=== PATIENT | female | born 1970 | race African-American/Black ===

== ENCOUNTER 2016-06-30 15:45 | Emergency (ER) | payer SELFPAY ==
[~2016-06-30] VITALS: Ht 175.3 cm; Wt 105.0 kg
[~2016-06-30 15:45] MED LIST: CYCL-36 PO; HYDR12.56 PO; LISI-363 PO; NAPR220T95 PO; NORV10TA PO
[2016-06-30 15:47] VITALS: BP 196/107; PULSE 70; RESP 20; TEMP 97.8; O2SAT 96
--- NOTE | 2016-06-30 17:56 | PD ---
HPI Chief Complaint: Abdominal Pain Time Seen by Provider: 17:53 Travel History International Travel<30 days: No Contact w/Intl Traveler<30days: No Traveled to known affect area: No History of Present Illness HPI Patient is a 46-year-old female presented to emergency for evaluation of abdominal pain and cramping. Patient also reports nausea and vomiting. Patient 's symptoms started yesterday. She denies any fever, chills, headache, chest pain, shortness of breath. Patient has not vomited since 8 AM this morning. Patient reports a small watery bowel movement yesterday. PFSH Past Medical History Blood Disorders: No Depression: Yes Heart Rhythm Problems: No Cancer: No Cardiovascular Problems: Yes (HTN) High Cholesterol: No Chest Pain: Yes Congestive Heart Failure: No Diabetes: No Diminished Hearing: No Endocrine: No Gastrointestinal Disorders: Yes (ONGOING PROBLEMS WITH ELIMINATION & NAUSEA OVER THE PAST FEW YEARS) GERD: Yes Genitourinary: No Hypertension: Yes Immune Disorder: No Reproductive: Yes (TOLD SHE MAY HAVE UTERINE FIBROIDS APPROX. 3 MONTHS AGO BY MD) Respiratory: No Immunizations Current: No ?: Not LMP: 06/26/16 : 4 Para: 4 Tubal Ligation: Yes (1993) Past Surgical History Pacemaker: No Other Surgery: Yes (TUBAL LIGATION IN 1993) Social History Alcohol Use: Yes (OCCAS) Tobacco Use: Yes (OCCAS) Substance Use: No Allergies-Medications (Allergen,Severity, Reaction): Coded Allergies: No Known Allergies (Verified , 06/30/16) Reported Meds & Prescriptions Reported Meds & Active Scripts Active Hctz (Hydrochlorothiazide) 12.5 Mg Cap 12.5 Mg PO DAILY Norvasc (Amlodipine Besylate) 10 Mg Tab 10 Mg PO DAILY Lisinopril 20 mg (Lisinopril) 20 Mg Tab 20 Mg PO DAILY Reported Aleve (Naproxen Sodium) 220 Mg Tab 220 Mg PO DAILY PRN Flexeril (Cyclobenzaprine HCl) 10 Mg Tab 10 Mg PO TID Review of Systems Except as stated in HPI: all other systems reviewed are Neg Gastrointestinal: Positive: Nausea, Vomiting, Abdominal Pain, Changes in Bowel Habits Physical Exam Narrative GENERAL: Well-developed, well-nourished, female. Appears uncomfortable, in no acute distress. SKIN: Warm and dry. HEAD: Atraumatic. Normocephalic. EYES: Pupils equal and round. No scleral icterus. No injection or drainage. ENT: No nasal bleeding or discharge. Mucous membranes pink and moist. NECK: Trachea midline. No JVD. CARDIOVASCULAR: Regular rate and rhythm. No murmur appreciated. RESPIRATORY: No accessory muscle use. Clear to auscultation. Breath sounds equal bilaterally. GASTROINTESTINAL: Abdomen soft, tender to palpation in epigastric region, nondistended. Hepatic and splenic margins not palpable. Positive bowel sounds, no rebound, guarding. MUSCULOSKELETAL: No obvious deformities. No clubbing. No cyanosis. No edema. NEUROLOGICAL: Awake and alert. No obvious cranial nerve deficits. Motor grossly within normal limits. Normal speech. PSYCHIATRIC: Appropriate mood and affect; insight and judgment normal. Data Data Last Documented VS Vital Signs Date Time Temp Pulse Resp B/P Pulse Ox O2 Delivery O2 Flow Rate FiO2 06/30/16 15:47 97.8 70 20 196/107 96 Room Air Orders Complete Blood Count With Diff (06/30/16 17:52) Comprehensive Metabolic Panel (06/30/16 17:52) Lipase (06/30/16 17:52) Urinalysis - C+S If Indicated (06/30/16 17:52) Abdomen, Kub Only (06/30/16 17:52) Dicyclomine (Bentyl) (06/30/16 18:00) Ct Abd/Pel W Iv Contrast(Rout) (06/30/16 20:07) Morphine Inj (Morphine Inj) (06/30/16 20:15) Ondansetron Inj (Zofran Inj) (06/30/16 20:15) Sodium Chlor 0.9% 1000 Ml Inj (Ns 1000 M (06/30/16 20:08) Labs Laboratory Tests Test 06/30/16 18:04 White Blood Count 9.0 TH/MM3 Red Blood Count 4.13 MIL/MM3 Hemoglobin 10.5 GM/DL Hematocrit 33.4 % Mean Corpuscular Volume 81.1 FL Mean Corpuscular Hemoglobin 25.5 PG Mean Corpuscular Hemoglobin 31.4 % Concent Red Cell Distribution Width 16.3 % Platelet Count 241 TH/MM3 Mean Platelet Volume 9.0 FL Neutrophils (%) (Auto) 64.8 % Lymphocytes (%) (Auto) 25.1 % Monocytes (%) (Auto) 8.6 % Eosinophils (%) (Auto) 1.2 % Basophils (%) (Auto) 0.3 % Neutrophils # (Auto) 5.9 TH/MM3 Lymphocytes # (Auto) 2.3 TH/MM3 Monocytes # (Auto) 0.8 TH/MM3 Eosinophils # (Auto) 0.1 TH/MM3 Basophils # (Auto) 0.0 TH/MM3 CBC Comment DIFF FINAL Differential Comment Urine Color YELLOW Urine Turbidity HAZY Urine pH 5.5 Urine Specific [place] 1.033 Urine Protein 30 mg/dL Urine Glucose (UA) NEG mg/dL Urine Ketones TRACE mg/dL Urine Occult Blood MOD Urine Nitrite NEG Urine Bilirubin NEG Urine Urobilinogen LESS THAN 2.0 MG/DL Urine Leukocyte Esterase MOD Urine RBC 10 /hpf Urine WBC 6 /hpf Urine Squamous Epithelial 5 /hpf Cells Urine Mucus MANY /lpf Microscopic Urinalysis Comment CULT NOT INDICATED Sodium Level 140 MEQ/L Potassium Level 3.3 MEQ/L Chloride Level 104 MEQ/L Carbon Dioxide Level 26.9 MEQ/L Anion Gap 9 MEQ/L Blood Urea Nitrogen 22 MG/DL Creatinine 1.48 MG/DL Estimat Glomerular Filtration 46 ML/MIN Rate Random Glucose 81 MG/DL Calcium Level 8.9 MG/DL Total Bilirubin 0.6 MG/DL Aspartate Amino Transf 11 U/L (AST/SGOT) Alanine Aminotransferase 17 U/L (ALT/SGPT) Alkaline Phosphatase 49 U/L Total Protein 8.0 GM/DL Albumin 4.0 GM/DL Lipase 255 U/L MDM Medical Decision Making Medical Screen Exam Complete: Yes Emergency Medical Condition: Yes Interpretation(s) Vital Signs Date Time Temp Pulse Resp B/P Pulse Ox O2 Delivery O2 Flow Rate FiO2 06/30/16 15:47 97.8 70 20 196/107 96 Room Air Differential Diagnosis Gastritis versus gastroenteritis versus food poisoning versus obstruction versus cholecystitis versus pancreatitis versus other Narrative Course Patient is a 42-year-old female presenting to the chart for evaluation of abdominal pain and cramping. Labs imaging ordered and pending, Bentyl 1 dose ordered. Workup initiated in triage, care of patient will be transferred to a provider when a medical bed is available. Carolina Aponte Jun 30, 2016 17:56
[2016-06-30] MEDS ORDERED: DICYCLOMINE HCL 10 MG CAP PO ONE (18:00)
[2016-06-30 18:39] LABS: AUTOMATED NEUTROPHIL # 5.9 TH/MM3 (1.8-7.7); BASOPHIL % 0.3 % (0.0-2.0); BLOOD, URINE MOD (NEG); COMMENT (UR) CULT NOT INDICATED; CULTURE IF INDICATED CULT NOT INDICATED; EOSINOPHIL # 0.1 TH/MM3 (0-0.4); EOSINOPHIL % 1.2 % (0.0-4.0); GLUCOSE,URINE NEG (NEG); HEMATOCRIT 33.4 % (35.0-46.0); HEMO FLAGS DIFF FINAL; KETONE, URINE TRACE mg/dL (NEG); LYMPH % 25.1 % (9.0-44.0); LYMPHOCYTE # 2.3 TH/MM3 (1.0-4.8); MEAN CELL VOLUME 81.1 FL (80.0-100.0); MEAN CORPUSCULAR HEMOGLOBIN 25.5 PG (27.0-34.0); MEAN CORPUSCULAR HGB CONC 31.4 % (32.0-36.0); MONO % 8.6 % (0.0-8.0); MUCUS URINE MANY /lpf (OCC); NEUT % 64.8 % (16.0-70.0); NITRITE,URINE NEG (NEG); PH, URINE 5.5 (5.0-8.5); PLATELET COUNT 241 TH/MM3 (150-450); RED BLOOD COUNT 4.13 MIL/MM3 (4.00-5.30); RED CELL DISTRIBUTION WIDTH 16.3 % (11.6-17.2); SQUAMOUS EPITHELIAL CELL URINE 5 /hpf (0-5); URINE COLOR YELLOW (YELLW/STRAW)
--- NOTE | 2016-06-30 18:42 | RADRPT ---
EXAM DATE/TIME: 06/30/2016 18:15 [facility] COMPARISON: No previous studies available for comparison. INDICATIONS : Patient complains of abdominal pain in the lower right quadrant. Patient also has been vomiting for 2 days. MEDICAL HISTORY : None. SURGICAL HISTORY : Tubal ligation. ENCOUNTER: Initial ACUITY: 2 days PAIN SCORE: 10/10 LOCATION: Abdomen FINDINGS: Supine view of the abdomen was performed. Mildly prominent small bowel loops left midabdomen. No ab normal masses, calcifications, or organomegaly is seen. The osseous structures are unremarkable. Phl eboliths in the pelvis. Probable phlebolith adjacent to the left iliac crest. CONCLUSION: Mildly prominent small bowel loops in left midabdomen. Douglas Ruffin MD on June 30, 2016 at 18:37 Board Certified Radiologist. This report was verified electronically.
[2016-06-30 18:55] LABS: ANION GAP 9 MEQ/L (5-15); AST (GOT) 11 U/L (15-37); BICARBONATE 26.9 MEQ/L (21.0-32.0); BLOOD UREA NITROGEN 22 MG/DL (7-18); CHLORIDE 104 MEQ/L (98-107); GLOMERULAR FILTRATION RATE 46 ML/MIN (>89); POTASSIUM 3.3 MEQ/L (3.5-5.1); SODIUM (NA) 140 MEQ/L (136-145)
[2016-06-30 18:58] LABS: ALKALINE PHOSPHATASE 49 U/L (45-117); ALT (GPT) 17 U/L (10-53); TOTAL BILIRUBIN ADULT 0.6 MG/DL (0.2-1.0)
[2016-06-30] MEDS ORDERED: SODIUM CHLOR 0.9% 1000 ML INJ 1,000 ML IV SCH (20:08)
--- NOTE | 2016-06-30 20:11 | PD ---
HPI Chief Complaint: Abdominal Pain Time Seen by Provider: 20:00 Travel History International Travel<30 days: No Contact w/Intl Traveler<30days: No Traveled to known affect area: No History of Present Illness HPI 46-year-old female presents for evaluation of abdominal pain, nausea and vomiting. Symptoms started yesterday at 5 PM after eating some chicken from [employer]. She describes it as a crampy pain which is constant in the periumbilical region. No obvious aggravating or relieving factors. Associated nausea, vomiting, now dry heaving. Denies any diarrhea. Denies dysuria, flank pain, hematemesis, respiratory symptoms, dietary indiscretion, rash. History of tubal ligation, otherwise no history of abdominal surgery. No other complaints. PFSH Past Medical History Blood Disorders: No Depression: Yes Heart Rhythm Problems: No Cancer: No Cardiovascular Problems: Yes (HTN) High Cholesterol: No Chest Pain: Yes Congestive Heart Failure: No Diabetes: No Diminished Hearing: No Endocrine: No Gastrointestinal Disorders: Yes (ONGOING PROBLEMS WITH ELIMINATION & NAUSEA OVER THE PAST FEW YEARS) GERD: Yes Genitourinary: No Hypertension: Yes Immune Disorder: No Reproductive: Yes (TOLD SHE MAY HAVE UTERINE FIBROIDS APPROX. 3 MONTHS AGO BY MD) Respiratory: No Immunizations Current: No ?: Not LMP: 06/26/16 : 4 Para: 4 Tubal Ligation: Yes (1993) Past Surgical History Pacemaker: No Other Surgery: Yes (TUBAL LIGATION IN 1993) Social History Alcohol Use: No Tobacco Use: No Substance Use: No Allergies-Medications (Allergen,Severity, Reaction): Coded Allergies: No Known Allergies (Verified , 06/30/16) Reported Meds & Prescriptions Reported Meds & Active Scripts Active Hydrochlorothiazide 12.5 Mg Tab 12.5 Mg PO DAILY Norvasc (Amlodipine Besylate) 10 Mg Tab 10 Mg PO DAILY Zofran (Ondansetron HCl) 4 Mg Tab 4 Mg PO Q6HR PRN Hydrochlorothiazide (Miscellaneous Medication) 12.5 Mg Cap 12.5 Mg PO DAILY Norvasc (Amlodipine Besylate) 10 Mg Tab 10 Mg PO DAILY Lisinopril 20 mg (Lisinopril) 20 Mg Tab 20 Mg PO DAILY Reported Aleve (Naproxen Sodium) 220 Mg Tab 220 Mg PO DAILY PRN Flexeril (Cyclobenzaprine HCl) 10 Mg Tab 10 Mg PO TID Review of Systems Except as stated in HPI: all other systems reviewed are Neg Physical Exam Narrative GENERAL: Well-developed well-nourished female in no acute distress SKIN: Warm and dry. HEAD: Atraumatic. Normocephalic. EYES: Pupils equal and round. No scleral icterus. No injection or drainage. ENT: No nasal bleeding or discharge. Mucous membranes pink and moist. NECK: Trachea midline. No JVD. CARDIOVASCULAR: Regular rate and rhythm. No murmur appreciated. RESPIRATORY: No accessory muscle use. Clear to auscultation. Breath sounds equal bilaterally. GASTROINTESTINAL: Abdomen soft, periumbilical tenderness to palpation without guarding. No CVA tenderness. MUSCULOSKELETAL: No obvious deformities. No clubbing. No cyanosis. No edema. NEUROLOGICAL: Awake and alert. No obvious cranial nerve deficits. Motor grossly within normal limits. Normal speech. PSYCHIATRIC: Appropriate mood and affect; insight and judgment normal. Data Data Last Documented VS Vital Signs Date Time Temp Pulse Resp B/P Pulse Ox O2 Delivery O2 Flow Rate FiO2 06/30/16 20:57 66 18 184/104 Room Air 06/30/16 15:47 97.8 96 Orders Complete Blood Count With Diff (06/30/16 17:52) Comprehensive Metabolic Panel (06/30/16 17:52) Lipase (06/30/16 17:52) Urinalysis - C+S If Indicated (06/30/16 17:52) Abdomen, Kub Only (06/30/16 17:52) Dicyclomine (Bentyl) (06/30/16 18:00) Ct Abd/Pel W Iv Contrast(Rout) (06/30/16 20:07) Morphine Inj (Morphine Inj) (06/30/16 20:15) Ondansetron Inj (Zofran Inj) (06/30/16 20:15) Sodium Chlor 0.9% 1000 Ml Inj (Ns 1000 M (06/30/16 20:08) Iohexol 350 Inj (Omnipaque 350 Inj) (06/30/16 21:44) Ondansetron Inj (Zofran Inj) (06/30/16 22:00) Mandatory Outpatient Referral (06/30/16 22:11) Labs Laboratory Tests Test 06/30/16 18:04 White Blood Count 9.0 TH/MM3 Red Blood Count 4.13 MIL/MM3 Hemoglobin 10.5 GM/DL Hematocrit 33.4 % Mean Corpuscular Volume 81.1 FL Mean Corpuscular Hemoglobin 25.5 PG Mean Corpuscular Hemoglobin 31.4 % Concent Red Cell Distribution Width 16.3 % Platelet Count 241 TH/MM3 Mean Platelet Volume 9.0 FL Neutrophils (%) (Auto) 64.8 % Lymphocytes (%) (Auto) 25.1 % Monocytes (%) (Auto) 8.6 % Eosinophils (%) (Auto) 1.2 % Basophils (%) (Auto) 0.3 % Neutrophils # (Auto) 5.9 TH/MM3 Lymphocytes # (Auto) 2.3 TH/MM3 Monocytes # (Auto) 0.8 TH/MM3 Eosinophils # (Auto) 0.1 TH/MM3 Basophils # (Auto) 0.0 TH/MM3 CBC Comment DIFF FINAL Differential Comment Urine Color YELLOW Urine Turbidity HAZY Urine pH 5.5 Urine Specific [place] 1.033 Urine Protein 30 mg/dL Urine Glucose (UA) NEG mg/dL Urine Ketones TRACE mg/dL Urine Occult Blood MOD Urine Nitrite NEG Urine Bilirubin NEG Urine Urobilinogen LESS THAN 2.0 MG/DL Urine Leukocyte Esterase MOD Urine RBC 10 /hpf Urine WBC 6 /hpf Urine Squamous Epithelial 5 /hpf Cells Urine Mucus MANY /lpf Microscopic Urinalysis Comment CULT NOT INDICATED Sodium Level 140 MEQ/L Potassium Level 3.3 MEQ/L Chloride Level 104 MEQ/L Carbon Dioxide Level 26.9 MEQ/L Anion Gap 9 MEQ/L Blood Urea Nitrogen 22 MG/DL Creatinine 1.48 MG/DL Estimat Glomerular Filtration 46 ML/MIN Rate Random Glucose 81 MG/DL Calcium Level 8.9 MG/DL Total Bilirubin 0.6 MG/DL Aspartate Amino Transf 11 U/L (AST/SGOT) Alanine Aminotransferase 17 U/L (ALT/SGPT) Alkaline Phosphatase 49 U/L Total Protein 8.0 GM/DL Albumin 4.0 GM/DL Lipase 255 U/L [facility] Medical Decision Making Medical Screen Exam Complete: Yes Emergency Medical Condition: Yes Medical Record Reviewed: Yes Interpretation(s) CONCLUSION: 1. Wall thickening of multiple small bowel loops some of which are slightly dilated but no obstruction. This could be infectious or inflammatory. Crohn's is in the differential. 2. Small to moderate abdominal ascites. Differential Diagnosis Colitis, gastroenteritis, appendicitis, diverticulitis, obstruction, food poisoning Narrative Course 46-year-old female with one-day history of nausea, vomiting, crampy abdominal pain. She'll be given IV fluids, morphine and Zofran. CT the abdomen and pelvis has been ordered and is pending. CT reveals wall thickening of multiple small bowel loops, consistent with enteritis. Crohn's in the differential. She has no history of Crohn's. She did have colonoscopy and endoscopy in 2013 with no evidence of inflammatory bowel disorder on pathology report. Mandatory outpatient referral for outpatient follow-up with gastroenterology will be placed. The patient is being given refills of her hydrochlorothiazide and amlodipine as well as Zofran for nausea. Diagnosis Primary Impression: Enteritis Referrals: Entry Examiner Additional Instructions: Medication as prescribed. Slowly advance diet as tolerated. Follow-up with primary care physician as well as mastic floor layer. Return for any emergent medical conditions. Med/Other Pt SpecificInfo: Prescription(s) given Scripts Hydrochlorothiazide 12.5 Mg Tab12.5 Mg PO DAILY #30 TAB Ref 0 Prov:Donya Jennings MD 06/30/16 Amlodipine (Norvasc)10 Mg Tab10 Mg PO DAILY #30 TAB Ref 0 Prov:Donya Jennings MD 06/30/16 Ondansetron (Zofran)4 Mg Tab4 Mg PO Q6HR PRN (NAUSEA OR VOMITING) #20 TAB Ref 0 Prov:Donya Jennings MD 06/30/16 Disposition: 01 DISCHARGE HOME Condition: Stable Jeremy Garnett Jun 30, 2016 20:11
[2016-06-30] MEDS ORDERED: MORPHINE SULFATE 4 MG/ML INJ IV PUSH ONE (20:15)
[2016-06-30] MEDS ORDERED: ONDANSETRON HCL 4 MG/2 ML VIAL IV PUSH ONE ×2 (20:15→22:00)
[2016-06-30 20:57] VITALS: BP 184/104; PULSE 66; RESP 18
[2016-06-30] MEDS ORDERED: IOHEXOL 350 MG/ML 10 ML VIAL (for RAD DIAG) IV ONE (21:44)
--- NOTE | 2016-06-30 21:51 | RADRPT ---
EXAM DATE/TIME: 06/30/2016 21:31 [facility] COMPARISON: CT ABDOMEN & PELVIS W CONTRAST, February 13, 2014, 20:59. INDICATIONS : Abdominal pain with nausea and vomiting for 1 day. IV CONTRAST: 80 cc Omnipaque 350 (iohexol) IV ORAL CONTRAST: No oral contrast ingested. RADIATION DOSE: 9.96 CTDIvol (mGy) MEDICAL HISTORY : Cardiovascular disease. Hypertension. SURGICAL HISTORY : Tubal ligation. ENCOUNTER: Initial ACUITY: 1 day PAIN SCALE: 4/10 LOCATION: Abdomen/pelvis TECHNIQUE: Volumetric scanning of the abdomen and pelvis was performed. Using automated exposure control and ad justment of the mA and/or kV according to patient size, radiation dose was kept as low as reasonably achievable to obtain optimal diagnostic quality images. FINDINGS: LOWER LUNGS: The visualized lower lungs are clear. LIVER: Homogeneous density without lesion. There is no dilation of the biliary tree. No calcified gallston es. Small to moderate abdominal ascites. SPLEEN: Normal size without lesion. PANCREAS: Within normal limits. KIDNEYS: Normal in size and shape. There is no mass, stone or hydronephrosis. ADRENAL GLANDS: Within normal limits. VASCULAR: There is no aortic aneurysm. BOWEL/MESENTERY: Wall thickening of multiple small bowel loops. Some of these bowel loops are mildly dilated. No defin ite obstruction.. There is no free intraperitoneal air or fluid. ABDOMINAL WALL: Within normal limits. RETROPERITONEUM: There is no lymphadenopathy. BLADDER: No wall thickening or mass. REPRODUCTIVE: Within normal limits. INGUINAL: There is no lymphadenopathy or hernia. MUSCULOSKELETAL: Within normal limits for patient age. CONCLUSION: 1. Wall thickening of multiple small bowel loops some of which are slightly dilated but no obstructio n. This could be infectious or inflammatory. Crohn's is in the differential. 2. Small to moderate abdominal ascites. Douglas Ruffin MD on June 30, 2016 at 21:47 Board Certified Radiologist. This report was verified electronically.
[2016-06-30] MEDS ORDERED: ZOFR4TAB PO (21:59)
[2016-06-30] MEDS ORDERED: HYDR12.56 PO (21:59)
[2016-06-30] MEDS ORDERED: AMLO10 PO (21:59)
== END 2016-06-30 23:22 | disposition home or self-care (01) ==
LOC: NEPC 15:45
DX: K52.9 Noninfective gastroenteritis and colitis, unspecified (principal); I10 Essential (primary) hypertension; Z72.0 Tobacco use; Z76.0 Encounter for issue of repeat prescription; Z87.19 Personal history of other diseases of the digestive system; Z87.42 Personal history of other diseases of the female genital tract; Z86.59 Personal history of other mental and behavioral disorders
CPT/HCPCS: 74000; 74177; 80053; 81001; 83690; 85025; 96361; 96374; 96375; 99284; J2270; J2405; J7030; Q9967

== ENCOUNTER 2016-07-20 10:56 | Emergency (ER) | payer SELFPAY ==
[~2016-07-20 10:56] MED LIST changes: +AMLO10 PO; +ZOFR4TAB PO
[2016-07-20 10:58] VITALS: BP 154/95; PULSE 101; RESP 17; TEMP 98.2; O2SAT 98
[2016-07-20] MEDS ORDERED: SODIUM CHLOR 0.9% 1000 ML INJ 1,000 ML IV SCH (14:21)
--- NOTE | 2016-07-20 14:26 | PD ---
HPI Chief Complaint: GI Complaint Time Seen by Provider: 14:10 Travel History International Travel<30 days: No Contact w/Intl Traveler<30days: No Traveled to known affect area: No History of Present Illness HPI This is a 46-year-old female who presents for evaluation of abdominal pain, nausea, vomiting. Symptoms started last night. Pain is an aching pain in the right side of her abdomen primarily in the periumbilical region. Pain is constant, associated with several episodes of emesis throughout the day and night. She reports that her last one or 2 episodes of emesis were blood- tinged. Denies any diarrhea, fevers or chills, flank pain, dysuria, cough or congestion. She reports that she has had similar pain a few times a year over the past several years. She has been seen here in the past with similar types of abdominal pain. Most recently she was seen here on June [address] of the abdomen revealed wall thickening of multiple small bowel loops some which are slightly dilated but no obstruction. Could be infectious or inflammatory. Crohn's is in the differential. PFSH Past Medical History Blood Disorders: No Depression: Yes Heart Rhythm Problems: No Cancer: No Cardiovascular Problems: Yes (HTN) High Cholesterol: No Chest Pain: Yes Congestive Heart Failure: No Cerebrovascular Accident: Yes Diabetes: No Diminished Hearing: No Endocrine: No Gastrointestinal Disorders: Yes (ONGOING PROBLEMS WITH ELIMINATION & NAUSEA OVER THE PAST FEW YEARS) GERD: Yes Genitourinary: No Hypertension: Yes Immune Disorder: No Reproductive: Yes (TOLD SHE MAY HAVE UTERINE FIBROIDS APPROX. 3 MONTHS AGO BY ) Respiratory: No Immunizations Current: No : 4 Para: 4 Tubal Ligation: Yes (1993) Past Surgical History Pacemaker: No Other Surgery: Yes (TUBAL LIGATION IN 1993) Social History Alcohol Use: No Tobacco Use: No Substance Use: No Allergies-Medications (Allergen,Severity, Reaction): Coded Allergies: No Known Allergies (Verified , 06/30/16) Reported Meds & Prescriptions Reported Meds & Active Scripts Active Lortab (Hydrocodone-Acetaminophen) 5-325 Mg Tab 1 Tab PO Q6H PRN Zofran (Ondansetron HCl) 4 Mg Tab 4 Mg PO Q6HR PRN Hydrochlorothiazide 12.5 Mg Tab 12.5 Mg PO DAILY Norvasc (Amlodipine Besylate) 10 Mg Tab 10 Mg PO DAILY Zofran (Ondansetron HCl) 4 Mg Tab 4 Mg PO Q6HR PRN Hydrochlorothiazide (Miscellaneous Medication) 12.5 Mg Cap 12.5 Mg PO DAILY Norvasc (Amlodipine Besylate) 10 Mg Tab 10 Mg PO DAILY Lisinopril 20 mg (Lisinopril) 20 Mg Tab 20 Mg PO DAILY Reported Aleve (Naproxen Sodium) 220 Mg Tab 220 Mg PO DAILY PRN Flexeril (Cyclobenzaprine HCl) 10 Mg Tab 10 Mg PO TID Review of Systems Except as stated in HPI: all other systems reviewed are Neg Physical Exam Narrative GENERAL: Well developed well-nourished female who appears uncomfortable on initial examination. SKIN: Warm and dry. HEAD: Atraumatic. Normocephalic. EYES: Pupils equal and round. No scleral icterus. No injection or drainage. ENT: No nasal bleeding or discharge. Mucous membranes pink and moist. NECK: Trachea midline. No JVD. CARDIOVASCULAR: Regular rate and rhythm. No murmur appreciated. RESPIRATORY: No accessory muscle use. Clear to auscultation. Breath sounds equal bilaterally. GASTROINTESTINAL: Abdomen soft, tender to palpation right periumbilical lower quadrant without guarding. MUSCULOSKELETAL: No obvious deformities. No clubbing. No cyanosis. No edema. NEUROLOGICAL: Awake and alert. No obvious cranial nerve deficits. Motor grossly within normal limits. Normal speech. PSYCHIATRIC: Appropriate mood and affect; insight and judgment normal. Data Data Last Documented VS Vital Signs Date Time Temp Pulse Resp B/P Pulse Ox O2 Delivery O2 Flow Rate FiO2 07/20/16 10:58 98.2 101 17 154/95 98 Orders Complete Blood Count With Diff (07/20/16 14:21) Comprehensive Metabolic Panel (07/20/16 14:21) Lipase (07/20/16 14:21) Urinalysis - C+S If Indicated (07/20/16 14:21) Morphine Inj (Morphine Inj) (07/20/16 14:30) Ondansetron Inj (Zofran Inj) (07/20/16 14:30) Sodium Chlor 0.9% 1000 Ml Inj (Ns 1000 M (07/20/16 14:21) Ed Urine Pregnancytest Poc (07/20/16 14:21) Labs Laboratory Tests Test 3/28/17 3/28/17 15:35 16:30 White Blood Count 10.8 TH/MM3 Red Blood Count 4.93 MIL/MM3 Hemoglobin 13.2 GM/DL Hematocrit 39.3 % Mean Corpuscular Volume 79.7 FL Mean Corpuscular Hemoglobin 26.9 PG Mean Corpuscular Hemoglobin 33.7 % Concent Red Cell Distribution Width 15.9 % Platelet Count 223 TH/MM3 Mean Platelet Volume 10.1 FL Neutrophils (%) (Auto) 80.1 % Lymphocytes (%) (Auto) 12.3 % Monocytes (%) (Auto) 6.7 % Eosinophils (%) (Auto) 0.4 % Basophils (%) (Auto) 0.5 % Neutrophils # (Auto) 8.7 TH/MM3 Lymphocytes # (Auto) 1.3 TH/MM3 Monocytes # (Auto) 0.7 TH/MM3 Eosinophils # (Auto) 0.0 TH/MM3 Basophils # (Auto) 0.1 TH/MM3 CBC Comment DIFF FINAL Differential Comment Sodium Level 140 MEQ/L Potassium Level 4.2 MEQ/L Chloride Level 109 MEQ/L Carbon Dioxide Level 21.9 MEQ/L Anion Gap 9 MEQ/L Blood Urea Nitrogen 15 MG/DL Creatinine 1.33 MG/DL Estimat Glomerular Filtration 52 ML/MIN Rate Random Glucose 84 MG/DL Calcium Level 9.2 MG/DL Total Bilirubin 0.6 MG/DL Aspartate Amino Transf 10 U/L (AST/SGOT) Alanine Aminotransferase 14 U/L (ALT/SGPT) Alkaline Phosphatase 50 U/L Total Protein 8.2 GM/DL Albumin 4.0 GM/DL Lipase 230 U/L Urine Color YELLOW Urine Turbidity HAZY Urine pH 5.5 Urine Specific [place] 1.031 Urine Protein 30 mg/dL Urine Glucose (UA) NEG mg/dL Urine Ketones 10 mg/dL Urine Occult Blood TRACE Urine Nitrite NEG Urine Bilirubin NEG Urine Urobilinogen 2.0 MG/DL Urine Leukocyte Esterase SMALL Urine RBC 2 /hpf Urine WBC 4 /hpf Urine Squamous Epithelial 1 /hpf Cells Urine Bacteria FEW /hpf Urine Hyaline Casts 7 /lpf Urine Mucus MOD /lpf Microscopic Urinalysis Comment CULT NOT INDICATED MDM Medical Decision Making Medical Screen Exam Complete: Yes Emergency Medical Condition: Yes Medical Record Reviewed: Yes Differential Diagnosis Crohn's, enteritis, gastritis, pancreatitis, appendicitis, cholecystitis Narrative Course 46 year old female with frequent episodes of right-sided abdominal pain for years with associated nausea and vomiting, similar presentation today. She has had CT imaging here several times in the past, most recently earlier this month , revealing inflammation of the small bowel suggestive of Crohn's. The patient is being given information in regards to our patient assistance program so that she can get some follow-up with a cold storage worker for definitive diagnosis. Lab work performed today was unremarkable. She was given pain medication and nausea medicine and fluids and she feels improved. She is stable for discharge. Diagnosis Primary Impression: Abdominal pain Qualified Code: R10.9 - Abdominal pain, unspecified location Additional Instructions: Follow-up with a primary care physician, cold storage worker. Zofran for nausea. Lortab for pain. Slowly advance diet as tolerated. Return for any emergent medical conditions. Med/Other Pt SpecificInfo: Prescription(s) given Scripts Hydrocodone-Acetaminophen (Lortab)5-325 Mg Tab1 Tab PO Q6H PRN (PAIN) #15 TAB Ref 0 Prov:Sana Ellsworth MD 07/20/16 Ondansetron (Zofran)4 Mg Tab4 Mg PO Q6HR PRN (NAUSEA OR VOMITING) #20 TAB Ref 0 Prov:Sana Ellsworth MD 07/20/16 Disposition: 01 DISCHARGE HOME Condition: Stable Jeremy Garnett Jul 20, 2016 14:26
[2016-07-20] MEDS ORDERED: ONDANSETRON HCL 4 MG/2 ML VIAL IVP ONE (14:30)
[2016-07-20] MEDS ORDERED: MORPHINE SULFATE 4 MG/ML INJ IV PUSH ONE ×2 (14:30→17:00)
--- NOTE | 2016-07-20 15:05 | PD ---
Data Data Last Documented VS Vital Signs Date Time Temp Pulse Resp B/P Pulse Ox O2 Delivery O2 Flow Rate FiO2 07/20/16 10:58 98.2 101 17 154/95 98 Orders Complete Blood Count With Diff (07/20/16 14:21) Comprehensive Metabolic Panel (07/20/16 14:21) Lipase (07/20/16 14:21) Urinalysis - C+S If Indicated (07/20/16 14:21) Morphine Inj (Morphine Inj) (07/20/16 14:30) Ondansetron Inj (Zofran Inj) (07/20/16 14:30) Sodium Chlor 0.9% 1000 Ml Inj (Ns 1000 M (07/20/16 14:21) Ed Urine Pregnancytest Poc (07/20/16 14:21) MDM Supervised Visit with ROSELINE: Yes Narrative Course I, Dr. Ellsworth, have reviewed the advance practice practioner's documentation and am in agreement, met with the patient face to face, made the diagnosis, and the medical decision making was done by me. *My assessment and Findings: 46 year-old female here with complaint of abdominal pain, nausea vomiting primarily periumbilical and right sided intermittent since yesterday but historically patient has had these symptoms chronically. Looking back she has had symptoms ever since 2010 of recurrent abdominal pain with inflammatory changes predominantly within the ileum and small bowel. She had endoscopy, colonoscopy in 2013 showing pancolitis. Patient was most recently imaging our ER on July 10 with chronic small bowel wall thickening but no evidence of obstruction. Patient states the symptoms are similar of her chronic, recurrent abdominal pain. Abdominal examination is benign, though she does have some mild pain on the periumbilical and right side. I suspect she likely has Crohn's disease given her history that she's never been able to get in with GI as an outpatient to follow-up for same. Differential includes ulcerative colitis, enteritis, chronic abdominal pain. We 'll check basic laboratory workup and is unremarkable I'm comfortable with disposition home. Patient does however need GI follow-up and an initial counselor will talk with her to see her she can qualify for patient assistance. Sana Ellsworth MD Jul 20, 2016 15:05
[2016-07-20 15:57] LABS: AUTOMATED NEUTROPHIL # 8.7 TH/MM3 (1.8-7.7); BASOPHIL # 0.1 TH/MM3 (0-0.2); BASOPHIL % 0.5 % (0.0-2.0); EOSINOPHIL % 0.4 % (0.0-4.0); HEMATOCRIT 39.3 % (35.0-46.0); HEMO FLAGS DIFF FINAL; LYMPH % 12.3 % (9.0-44.0); LYMPHOCYTE # 1.3 TH/MM3 (1.0-4.8); MEAN CELL VOLUME 79.7 FL (80.0-100.0); MEAN CORPUSCULAR HEMOGLOBIN 26.9 PG (27.0-34.0); MEAN CORPUSCULAR HGB CONC 33.7 % (32.0-36.0); MONO % 6.7 % (0.0-8.0); NEUT % 80.1 % (16.0-70.0); PLATELET COUNT 223 TH/MM3 (150-450); RED BLOOD COUNT 4.93 MIL/MM3 (4.00-5.30); RED CELL DISTRIBUTION WIDTH 15.9 % (11.6-17.2); WHITE BLOOD COUNT 10.8 TH/MM3 (4.0-11.0)
[2016-07-20 16:12] LABS: ALT (GPT) 14 U/L (10-53); ANION GAP 9 MEQ/L (5-15); AST (GOT) 10 U/L (15-37); BICARBONATE 21.9 MEQ/L (21.0-32.0); BLOOD UREA NITROGEN 15 MG/DL (7-18); CHLORIDE 109 MEQ/L (98-107); GLOMERULAR FILTRATION RATE 52 ML/MIN (>89); POTASSIUM 4.2 MEQ/L (3.5-5.1); SODIUM (NA) 140 MEQ/L (136-145)
[2016-07-20 16:14] LABS: ALKALINE PHOSPHATASE 50 U/L (45-117); TOTAL BILIRUBIN ADULT 0.6 MG/DL (0.2-1.0)
[2016-07-20 16:45] LABS: BACTERIA, URINE FEW /hpf; BLOOD, URINE TRACE (NEG); COMMENT (UR) CULT NOT INDICATED; CULTURE IF INDICATED CULT NOT INDICATED; GLUCOSE,URINE NEG (NEG); HYALINE CAST, URINE 7 /lpf (RARE); KETONE, URINE 10 mg/dL (NEG); MUCUS URINE MOD /lpf (OCC); NITRITE,URINE NEG (NEG); PH, URINE 5.5 (5.0-8.5); SQUAMOUS EPITHELIAL CELL URINE 1 /hpf (0-5); URINE COLOR YELLOW (YELLW/STRAW)
[2016-07-20] MEDS ORDERED: HYDR-3533 PO ×2 (16:51→16:53)
[2016-07-20] MEDS ORDERED: ZOFR4TAB PO (16:51)
[2016-07-20] MEDS ORDERED: LISI-515 PO (17:28)
[2016-07-20] MEDS ORDERED: PROM25TA5 PO (17:32)
== END 2016-07-20 19:19 | disposition home or self-care (01) ==
LOC: NEPB 10:56
DX: R10.9 Unspecified abdominal pain (principal); I10 Essential (primary) hypertension
CPT/HCPCS: 80053; 81001; 83690; 84703; 85025; 96361; 96374; 96375; 96376; 99283; J2270; J2405; J7030

== ENCOUNTER 2017-06-28 08:28 | Emergency (ER) | payer MEDICAID ==
[~2017-06-28] VITALS: Ht 175.3 cm; Wt 102.0 kg
[~2017-06-28 08:28] MED LIST changes: -CYCL-36 PO; +HYDR-3533 PO; -LISI-363 PO; +LISI-515 PO; -NAPR220T95 PO; -NORV10TA PO; +PROM25TA5 PO
[2017-06-28 08:29] VITALS: BP 150/90; PULSE 89; RESP 18; TEMP 98.5; O2SAT 99
[2017-06-28] MEDS ORDERED: ASPI-516 CHEW (09:20)
--- NOTE | 2017-06-28 09:30 | PD ---
HPI Chief Complaint: GI Complaint Time Seen by Provider: 09:29 Travel History International Travel<30 days: No Contact w/Intl Traveler<30days: No Traveled to known affect area: No History of Present Illness HPI 47-year-old female came to the emergency room with history of vomiting and diarrhea that started last night. Currently she says she is in significant discomfort from cramps in her abdomen. In fact I found her crying when I went to see her in the room. She says she has been very uncomfortable. No blood in her vomit or stool. She points the pain in the periumbilical area. She says the cramps are worse just before the diarrhea happens. 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 Vital signs are stable. No radiation of the pain [facility] Past Medical History Narrative Medical List of her past medical, surgical, social and family history is reviewed from the nursing note. Blood Disorders: No Depression: Yes Heart Rhythm Problems: No Cancer: No Cardiovascular Problems: Yes (HTN) High Cholesterol: No Chest Pain: Yes Congestive Heart Failure: No Cerebrovascular Accident: Yes Diabetes: No Diminished Hearing: No Endocrine: No Gastrointestinal Disorders: Yes (ONGOING PROBLEMS WITH ELIMINATION & NAUSEA OVER THE PAST FEW YEARS) GERD: Yes Genitourinary: No Hypertension: Yes Immune Disorder: No Reproductive: Yes (TOLD SHE MAY HAVE UTERINE FIBROIDS APPROX. 3 MONTHS AGO BY MD) Respiratory: No Immunizations Current: No ?: Not LMP: 05/2017 : 4 Para: 4 Tubal Ligation: Yes (1993) Past Surgical History Pacemaker: No Other Surgery: Yes (TUBAL LIGATION IN 1993) Social History Alcohol Use: No Tobacco Use: No Substance Use: No Allergies-Medications (Allergen,Severity, Reaction): Coded Allergies: No Known Allergies (Verified Adverse Reaction, Unknown, 06/28/17) Comments No known drug allergies Reported Meds & Prescriptions Reported Meds & Active Scripts Active Hydrochlorothiazide 12.5 Mg Tab 12.5 Mg PO DAILY Norvasc (Amlodipine Besylate) 10 Mg Tab 10 Mg PO DAILY Reported Aspirin 81 Mg Chew 81 Mg CHEW DAILY Lisinopril 20 Mg Tab 20 Mg PO AC LUNCH Narrative Medication List of her home medications reviewed from the nursing note Review of Systems Except as stated in HPI: all other systems reviewed are Neg Gastrointestinal: Positive: Nausea, Vomiting, Diarrhea Physical Exam Narrative GENERAL: Awake, alert, anxious, moderate distress SKIN: Focused skin assessment warm/dry. HEAD: Atraumatic. Normocephalic. EYES: Pupils equal and round. No scleral icterus. No injection or drainage. ENT: No nasal bleeding or discharge. Mucous membranes pink and moist. NECK: Trachea midline. No JVD. CARDIOVASCULAR: Regular rate and rhythm. No murmur appreciated. RESPIRATORY: No accessory muscle use. Clear to auscultation. Breath sounds equal bilaterally. GASTROINTESTINAL: Abdomen soft, non-tender, nondistended. Hepatic and splenic margins not palpable. MUSCULOSKELETAL: No obvious deformities. No clubbing. No cyanosis. No edema. NEUROLOGICAL: Awake and alert. No obvious cranial nerve deficits. Motor grossly within normal limits. Normal speech. PSYCHIATRIC: Appropriate mood and affect; insight and judgment normal. Data Data Last Documented VS Orders Orders Complete Blood Count With Diff (06/28/17 09:49) Comprehensive Metabolic Panel (06/28/17 09:49) Lipase (06/28/17 09:49) Ct Abd/Pel W/O Iv Contrast (06/28/17 09:49) Iv Access Insert/Monitor (06/28/17 09:49) Ecg Monitoring (06/28/17 09:49) Oximetry (06/28/17 09:49) Morphine Inj (Morphine Inj) (06/28/17 10:00) Ondansetron Inj (Zofran Inj) (06/28/17 10:00) Sodium Chlor 0.9% 1000 Ml Inj (Ns 1000 M (06/28/17 09:49) Sodium Chloride 0.9% Flush (Ns Flush) (06/28/17 10:00) Urinalysis - C+S If Indicated (06/28/17 09:49) B-Type Natriuretic Peptide (06/28/17 10:42) Troponin I (06/28/17 10:42) Electrocardiogram (06/28/17 ) Ed Discharge Order (06/28/17 12:18) Labs Laboratory Tests Test 06/28/17 10:00 06/28/17 11:00 White Blood Count 10.5 TH/MM3 Red Blood Count 4.72 MIL/MM3 Hemoglobin 12.7 GM/DL Hematocrit 39.1 % Mean Corpuscular Volume 82.8 FL Mean Corpuscular Hemoglobin 27.0 PG Mean Corpuscular Hemoglobin Concent 32.6 % Red Cell Distribution Width 15.2 % Platelet Count 252 TH/MM3 Mean Platelet Volume 9.5 FL Neutrophils (%) (Auto) 72.9 % Lymphocytes (%) (Auto) 17.2 % Monocytes (%) (Auto) 6.6 % Eosinophils (%) (Auto) 2.7 % Basophils (%) (Auto) 0.6 % Neutrophils # (Auto) 7.6 TH/MM3 Lymphocytes # (Auto) 1.8 TH/MM3 Monocytes # (Auto) 0.7 TH/MM3 Eosinophils # (Auto) 0.3 TH/MM3 Basophils # (Auto) 0.1 TH/MM3 CBC Comment DIFF FINAL Differential Comment Blood Urea Nitrogen 15 MG/DL Creatinine 1.03 MG/DL Random Glucose 92 MG/DL Total Protein 7.4 GM/DL Albumin 3.4 GM/DL Calcium Level 8.7 MG/DL Alkaline Phosphatase 50 U/L Aspartate Amino Transf (AST/SGOT) 20 U/L Alanine Aminotransferase (ALT/SGPT) 18 U/L Total Bilirubin 0.4 MG/DL Sodium Level 138 MEQ/L Potassium Level 4.1 MEQ/L Chloride Level 106 MEQ/L Carbon Dioxide Level 25.6 MEQ/L Anion Gap 6 MEQ/L Estimat Glomerular Filtration Rate 69 ML/MIN Troponin I LESS THAN 0.02 NG/ML B-Type Natriuretic Peptide 40 PG/ML Lipase 181 U/L Urine Color YELLOW Urine Turbidity HAZY Urine pH 5.5 Urine Specific [place] 1.026 Urine Protein TRACE mg/dL Urine Glucose (UA) NEG mg/dL Urine Ketones NEG mg/dL Urine Occult Blood SMALL Urine Nitrite NEG Urine Bilirubin NEG Urine Urobilinogen LESS THAN 2.0 MG/DL Urine Leukocyte Esterase LARGE Urine RBC 11 /hpf Urine WBC 6 /hpf Urine Squamous Epithelial Cells 7 /hpf Urine Bacteria RARE /hpf Urine Hyaline Casts 1 /lpf Urine Mucus MOD /lpf Microscopic Urinalysis Comment CULT NOT INDICATED MDM Medical Decision Making Medical Screen Exam Complete: Yes Emergency Medical Condition: Yes Medical Record Reviewed: Yes Interpretation(s) Twelve-lead EKG was reviewed by me. Normal sinus rhythm, normal axis, nonspecific ST-T wave changes, bradycardia. Heart rate of 58 bpm. Differential Diagnosis Acute gastroenteritis, small bowel obstruction Narrative Course 11:51 AM blood test results are back and within acceptable limits. UA is negative. CT scan shows mild ascites and mild pericardial effusion. Based on this I ordered a troponin and BNP. Awaiting for that blood test result. If that is within normal limits patient will be discharged home. 12:19 PM rest of the blood test results are back and within normal limits. I will discharge her home. Procedures EKG Prior to Arrival: No Diagnosis Primary Impression: Acute gastroenteritis Referrals: Primary Care Physician Additional Instructions: Eat brat diet which includes banana, rice, applesauce, toast and tea. Follow up with the primary care. Return to the ER if condition worsens any other new concerns. Primary care should refer you to a food assembler commissary kitchen. Med/Other Pt SpecificInfo: No Change to Meds Disposition: 01 DISCHARGE HOME Condition: Stable Nora Breen MD Jun 28, 2017 09:30
[2017-06-28] MEDS ORDERED: SODIUM CHLOR 0.9% 1000 ML INJ 1,000 ML IV SCH (09:49)
[2017-06-28] MEDS ORDERED: MORPHINE SULFATE 4 MG/ML INJ IV PUSH ONE (10:00)
[2017-06-28] MEDS ORDERED: SODIUM CHLORIDE 0.9% FLUSH 10 ML FLUSH IV FLUSH PRN (10:00)
[2017-06-28] MEDS ORDERED: ONDANSETRON HCL 4 MG/2 ML VIAL IVP ONE (10:00)
[2017-06-28 10:10] VITALS: O2SAT 100
[2017-06-28 10:31] LABS: AUTOMATED NEUTROPHIL # 7.6 TH/MM3 (1.8-7.7); BASOPHIL # 0.1 TH/MM3 (0-0.2); BASOPHIL % 0.6 % (0.0-2.0); EOSINOPHIL # 0.3 TH/MM3 (0-0.4); EOSINOPHIL % 2.7 % (0.0-4.0); HEMATOCRIT 39.1 % (35.0-46.0); HEMOGLOBIN 12.7 GM/DL (11.6-15.3); LYMPH % 17.2 % (9.0-44.0); LYMPHOCYTE # 1.8 TH/MM3 (1.0-4.8); MEAN CELL VOLUME 82.8 FL (80.0-100.0); MEAN CORPUSCULAR HGB CONC 32.6 % (32.0-36.0); MEAN PLATELET VOLUME 9.5 FL (7.0-11.0); MONO % 6.6 % (0.0-8.0); MONOCYTE # 0.7 TH/MM3 (0-0.9); NEUT % 72.9 % (16.0-70.0); PLATELET COUNT 252 TH/MM3 (150-450); RED BLOOD COUNT 4.72 MIL/MM3 (4.00-5.30); RED CELL DISTRIBUTION WIDTH 15.2 % (11.6-17.2); WHITE BLOOD COUNT 10.5 TH/MM3 (4.0-11.0)
--- NOTE | 2017-06-28 10:32 | RADRPT ---
EXAM DATE/TIME: 06/28/2017 10:14 [place] COMPARISON: No previous studies available for comparison. INDICATIONS : Right lower quadrant pain. Nausea, vomiting and diarrhea. ORAL CONTRAST: No oral contrast ingested. RADIATION DOSE: 8.55 CTDIvol (mGy) MEDICAL HISTORY : Cerebrovascular disease. Gastroesophageal reflux disease. Hypertension. SURGICAL HISTORY : Tubal ligation. ENCOUNTER: Initial ACUITY: 1 day PAIN SCALE: 10/10 LOCATION: Right lower quadrant TECHNIQUE: Volumetric scanning of the abdomen and pelvis was performed. Using automated exposure control and ad justment of the mA and/or kV according to patient size, radiation dose was kept as low as reasonably achievable to obtain optimal diagnostic quality images. DICOM format image data is available electro nically for review and comparison. FINDINGS: LOWER LUNGS: There is a tiny pericardial effusion. Lung bases are clear. LIVER: Homogeneous density without lesion. There is no dilation of the biliary tree. No calcified gallston es. SPLEEN: Normal size without lesion. PANCREAS: Within normal limits. KIDNEYS: Normal in size and shape. There is no mass, stone, or hydronephrosis. ADRENAL GLANDS: Within normal limits. VASCULAR: There is no aortic aneurysm. BOWEL/MESENTERY: The stomach, small bowel, and colon demonstrate no acute abnormality. There is no free intraperitone al air. Small volume ascites observed. ABDOMINAL WALL: A small umbilical hernia containing fat. RETROPERITONEUM: There is no lymphadenopathy. BLADDER: No wall thickening or mass. REPRODUCTIVE: Within normal limits. INGUINAL: There is no lymphadenopathy or hernia. MUSCULOSKELETAL: Within normal limits for patient age. CONCLUSION: 1. Small volume ascites. 2. Small pericardial effusion. Pepe Quinones Jr., MD on June 28, 2017 at 10:26 Board Certified Radiologist. This report was verified electronically.
[2017-06-28 10:50] LABS: ALKALINE PHOSPHATASE 50 U/L (45-117); TOTAL BILIRUBIN ADULT 0.4 MG/DL (0.2-1.0); TOTAL PROTEIN 7.4 GM/DL (6.4-8.2)
[2017-06-28 10:51] LABS: ALBUMIN 3.4 GM/DL (3.4-5.0); ALT (GPT) 18 U/L (10-53); AST (GOT) 20 U/L (15-37); BICARBONATE 25.6 MEQ/L (21.0-32.0); BLOOD UREA NITROGEN 15 MG/DL (7-18); CALCIUM 8.7 MG/DL (8.5-10.1); CHLORIDE 106 MEQ/L (98-107); CREATININE 1.03 MG/DL (0.50-1.00); GLOMERULAR FILTRATION RATE 69 ML/MIN (>89); GLUCOSE,RANDOM 92 MG/DL (74-106); SODIUM (NA) 138 MEQ/L (136-145)
[2017-06-28 11:29] LABS: BACTERIA, URINE RARE /hpf; BILIRUBIN, URINE NEG (NEG); BLOOD, URINE SMALL (NEG); GLUCOSE,URINE NEG (NEG); HYALINE CAST, URINE 1 /lpf (RARE); KETONE, URINE NEG (NEG); MUCUS URINE MOD /lpf (OCC); NITRITE,URINE NEG (NEG); PH, URINE 5.5 (5.0-8.5); SQUAMOUS EPITHELIAL CELL URINE 7 /hpf (0-5); URINE COLOR YELLOW (YELLW/STRAW); URINE LEUKOCYTE ESTERASE LARGE (NEG)
[2017-06-28 12:46] VITALS: BP 148/78
--- NOTE | 2017-06-29 15:01 | EKG ---
Date Performed: 06/28/2017 Time Performed: 10:48:09 PTAGE: 47 years EKG: SINUS BRADYCARDIA POSSIBLE LEFT ATRIAL ENLARGEMENT LOW QRS VOLTAGE IN LIMB LEADS PREVIOUS TRACING : 10/17/2014 19.23 DOCTOR: Ismael Casper Interpretating Date/Time 06/29/2017 14:59:02
== END 2017-06-28 12:49 | disposition home or self-care (01) ==
LOC: NEPD 08:28
DX: K52.9 Noninfective gastroenteritis and colitis, unspecified (principal); I10 Essential (primary) hypertension; I31.3 Pericardial effusion (noninflammatory); R00.1 Bradycardia, unspecified
CPT/HCPCS: 74176; 80053; 81001; 83690; 83880; 84484; 85025; 93005; 96361; 96374; 96375; 99285; J2270; J2405; J7030